=== PATIENT | female | born 1990 | race Two or more races ===

== ENCOUNTER 2017-10-09 16:54 | Emergency (ER) | payer MEDICAID ==
[2017-10-09 17:02] VITALS: BP 117/87
[2017-10-09] MEDS ORDERED: ACETAMINOPHEN 500 MG TAB PO ONE (17:06)
[2017-10-09] MEDS ORDERED: DEXAMETHASONE 4 MG TAB PO ONE (17:26)
[2017-10-09] MEDS ORDERED: LIDOCAINE 2% VISCOUS 15 ML UDCUP PO ONE (17:26)
[2017-10-09] MEDS ORDERED: IBUPROFEN 800 MG TAB PO ONE (17:26)
--- NOTE | 2017-10-09 17:31 | EDPHY ---
H & P Stated Complaint: ST/FEVER Source: Patient Exam Limitations: No limitations - Personal History LMP (Females 10-55): IUD In Place Current Tetanus Diphtheria and Acellular Pertussis (TDAP): Yes - Medical/Surgical History Hx Asthma: No Hx Chronic Respiratory Disease: No Hx Diabetes: No Hx Cardiac Disease: No Hx Renal Disease: No Hx Cirrhosis: No Hx Alcoholism: No Hx HIV/AIDS: No Hx Splenectomy or Spleen Trauma: No Other PMH: DENIES - Social History Smoking Status: Never smoked Time Seen by Provider: 10/09/17 17:31 HPI/ROS: HPI: This is a 27-year-old female who presents with Chief Complaint: Sore throat, fever Location: Throat Quality: Sore Duration: 3 days Signs and Symptoms: + fever, no nausea, no vomiting, no diarrhea, no urinary symptoms, no chest pain, no shortness of breath, no wheezing, no cough, + sore throat, no neck stiffness, no joint pain, + swollen glands, no ear pain, no rash Timing: Acute, constant Severity: Moderate Context: Patient reports that she woke up in the middle the night approximately 3 days ago with a sore throat and fever of 101 F. She reports that over the last several days she has had increased swollen glands with white spots on the back of her tonsils. She reports that it is hard for her to swallow any meat or potato chips. She has had no prior history of strep exposure. She reports that she does not have any difficulty talking, neck stiffness. She has taken Tylenol for the last 2 days with relief of her fever. She has been drinking liquids without difficulty. Patient has an IUD in place. Modifying Factors: None Comment: ROS: see HPI Constitutional: + fever, no chills, no weight loss Eyes: No blurred vision Respiratory: No shortness of breath, no cough Cardiovascular: No chest pain, no palpitations Gastrointestinal: No nausea, no vomiting, no diarrhea, no hematemesis, no blood in stool Genitourinary: No dysuria, no blood in urine Extremities: No myalgias, no edema Neurologic: No weakness, no numbness Skin: No rashes, no petechiae Hematologic: No bruising, no bleeding MEDICAL/SURGICAL/SOCIAL HISTORY: Medical history: Generally healthy. Does not take any regular medications. Surgical history: Denies Social history: Family history noncontributory. CONSTITUTIONAL: Obese female, awake and alert, no obvious distress HEENT: Atraumatic and normocephalic, PERRL, EOMI. Nares patent; no rhinorrhea; no nasal mucosal edema. Tympanic membranes clear. Oropharynx clear, no postpharyngeal edema, 2+ tonsillar hypertrophy with moderate erythema and white exudate, uvula midline, + halitosis, moist pink mucosa. Airway patent. + anterior spotty cervical lymphadenopathy. No meningismus. Cardiovascular: Normal S1/S2, regular rate, regular rhythm, without murmur rub or gallop. PULMONARY/CHEST: Symmetrical and nontender. Clear to auscultation bilaterally. Good air movement. No accessory muscle usage. ABDOMEN: Soft, nondistended, nontender, no rebound, no guarding, no peritoneal signs, no masses or organomegaly. No CVAT. EXTREMITIES: 2/2 pulses, strength 5/5, no deformities, no clubbing, no cyanosis or edema. NEUROLOGICAL: no focal neuro deficits. GCS 15. Speech is clear. SKIN: Warm and dry, no erythema. no rash. Good capillary refill. (Danii Rausch) Constitutional: Initial Vital Signs Temperature (C) 38 C 10/09/17 17:00 Heart Rate 93 10/09/17 17:00 Respiratory Rate 18 10/09/17 17:00 Blood Pressure 117/87 H 10/09/17 17:00 O2 Sat (%) 97 10/09/17 17:00 O2 Delivery Mode Room Air Allergies/Adverse Reactions: No Known Allergies Allergy (Verified 10/09/17 16:59) Home Medications: Medication Instructions Recorded Amoxicillin Trihydrate [Amoxil] 500 mg PO TID 10 Days cap 10/09/17 Medical Decision Making ED Course/Re-evaluation: Vital signs reviewed and stable upon arrival. No signs of tonsillar abscess, airway compromise, respiratory distress, facial cellulitis. Rapid strep negative but modified Center score equals 3; will treat with amoxicillin waiting for throat culture results. Given Decadron 8 mg, amoxicillin 500 mg and 15 mL of viscous lidocaine in the ER with adequate relief. This patient was seen under the supervision of my secondary supervising physician. I evaluated care for this patient independently. Discussed this patient with Dr. Mills. (Danii Rausch) The patient was evaluated and managed by the physician assistant manager trainee. I have reviewed this chart and I agree with the findings and plan of care as documented , as indicated by my signature. I am the secondary supervising physician. ( Renita Mills) Differential Diagnosis: Differential diagnosis includes but is not limited to Rito's angina, tonsillar abscess, strep pharyngitis, upper respiratory infection, lymphadenitis. (Danii Rausch) - Data Points Medications Given: Discontinued Medications Acetaminophen (Tylenol) 1,000 mg PO EDNOW ONE Stop: 10/09/17 17:07 Last Admin: 10/09/17 17:08 Dose: 1,000 mg Amoxicillin (Amoxicillin) 500 mg PO EDNOW ONE PRN Reason: Protocol Stop: 10/09/17 17:27 Last Admin: 10/09/17 17:50 Dose: 500 mg Dexamethasone (Decadron) 8 mg PO EDNOW ONE Stop: 10/09/17 17:27 Last Admin: 10/09/17 17:50 Dose: 8 mg Ibuprofen (Motrin) 800 mg PO EDNOW ONE Stop: 10/09/17 17:27 Last Admin: 10/09/17 17:50 Dose: 800 mg Lidocaine (Lidocaine 2% Viscous) 15 ml PO EDNOW ONE Stop: 10/09/17 17:27 Last Admin: 10/09/17 17:50 Dose: 15 ml Departure - Departure Disposition: Home, Routine, Self-Care Clinical Impression: Strep tonsillitis Condition: Good Instructions: Strep Throat (ED), Tonsillitis (ED) Additional Instructions: Consume a minimum of 8-10 glasses of water or electrolyte fluid replacement drinks that include Gatorade, Powerade, Pedialyte. Eat a bland diet for the next 48 hours and then slowly advance as tolerated. Take antibiotic as directed until complete. Do not skip any doses. Take ibuprofen 600 mg every 8 hr with food for the next 2 days. Return to the ER immediately if you cannot swallow, have drooling, fevers, neck stiffness, cannot open your jaw, or any other symptoms that concern you. Referrals: [facility],. [Clinic] - 3-4 days, if not improved Prescriptions: Amoxicillin Trihydrate [Amoxil] 500 mg PO TID 10 Days cap
== END 2017-10-09 17:55 | disposition home or self-care (01) ==
DX: J03.00 Acute streptococcal tonsillitis, unspecified (principal)